=== PATIENT | female | born 1970 | race Caucasian/White ===

== ENCOUNTER → 2020-05-26 07:06 | Outpatient (BNVA) | payer BC, SELFPAY | PROVIDERS: PCP Internal Medicine; Referring Provider Internal Medicine; Visit Provider Surgery | DX: Z76.89 Persons encountering health services in other specified circumstances (principal) ==

== ENCOUNTER → 2020-06-30 07:30 | Outpatient (BNVA) | payer BC, SELFPAY | PROVIDERS: PCP Internal Medicine; Visit Provider Surgery | DX: Z76.89 Persons encountering health services in other specified circumstances (principal) ==

== ENCOUNTER → 2020-07-23 07:43 | Outpatient (BNVA) | payer BC, SELFPAY | PROVIDERS: PCP Internal Medicine; Visit Provider Surgery | DX: Z76.89 Persons encountering health services in other specified circumstances (principal) ==

== ENCOUNTER → 2020-10-06 07:28 | Outpatient (BNVA) | payer BC, SELFPAY | PROVIDERS: PCP Internal Medicine; Visit Provider Surgery ==

== ENCOUNTER 2023-04-25 08:50 | Outpatient (AMB) | payer BC, SELFPAY ==
--- NOTE | 2023-04-25 08:52 | A.OFFVIS_ITS ---
Intake VS Expanded 04/25/23 08:58 Height 5 ft 2.5 in Weight 164 lb 3.2 oz BMI 29.6 BP 134/74 Blood Pressure Location Rt brachial Blood Pressure Position Sitting Pulse 80 Pulse Source Pulse Oximeter Temp 97.7 F Temperature Source Temporal Artery Scan Pulse Oximetry 97 Oxygen Delivery Method Room Air Body Fat 53.8 Body Fat Percentage 32.8 Free Fat Mass 110.2 Muscle Mass 104.8 Visceral Mass 6.0 Water Mass 78.2 BMR 1,483 Intake Visit Reasons: (OV) PO LSG 03/27/20 Reimbursement Liaison Required: No Allergies diphenhydramine [From BENADRYL] Allergy (Unknown, Verified 04/25/23 08:55) MAKES ME CRAZY Sulfa (Sulfonamide Antibiotics) [SULFA (SULFONAMIDE ANTIBIOTICS)] Allergy (Unknown, Verified 04/25/23 08:55) FEELS LIKE THROAT CLOSING Popie seeds Allergy (Unknown, Uncoded 03/21/20 00:00) rash POPPY SEEDS Allergy (Unknown, Uncoded 04/17/20 19:49) HIVES, SCRATCHY THROAT Sulfa Drugs Allergy (Unknown, Uncoded 03/21/20 00:00) redness Medication List - Last Reconciled 04/25/23 by MERRY Scott [mvi PO DAILY] [vit D 4,000 mcg PO DAILY] HPI HPI Comments History of Present Illness Details This?a?53?yo female who is s/p LSG without hiatal hernia repair on?03/27/20. Presents for 3 year post op visit. She was last seen in the office on 10/06/20 with a weight of 156.1 pounds and a BMI of 29. Weight today is 164.2 pounds, with a BMI of 329.6. No complaints of nausea, emesis, abdominal pain or reflux. Reports infrequent but normal bowel movements every 1-2 days and uses stool softeners regularly. She was lost to followup up due to having to care for her family and trying to do things independently. Present meal plan includes: Premier protein rtd Pure Protein bar w berries protein 4 oz, 4 oz veg 40 oz water, no soda or juice ? Exercise routine includes: walking3 miles daily, trampoline at night 12 minutes, 6 mile hike on weekends. Any post op complications: none BRAYDEN: never DM: never HTN: never Hyperlipidemia: never GERD:?0-5 scale ??0 = no symptoms ??1 = symptoms noticeable but not bothersome 2 =symptoms bothersome but not daily ? 3 = symptoms bothersome and daily 4 = symptoms affect daily activities 5 = symptoms are incapacitating, unable to do daily activities ? How bad is the heartburn: 0 ? Heartburn while lying down: 0 ? Heartburn when standing up: 0 ? Heartburn after meals: 0 ? Does heartburn change your diet: 0 ? Does heartburn wake you up from sleep: 0 ? Do you have difficulty swallowin ? Do you have pain with swallowin ? If you take medicine for your reflux, does this affect your daily life: 0 Satisfaction with present condition - satisfied or not satisfied: satisfied with health but would like to lose a little weight PFSH Medical History Intestinal malabsorption Surgical History Obesity Social History Alcohol intake: current Alcohol intake frequency: holidays/special occasions only Patient Tobacco Use Status: Never used Tobacco Review of Systems Const All systems reviewed & are unremarkable except as noted in HPI and below Physical Exam Vital Signs: Last Vital Signs Temp 97.7 F 04/25/23 08:58 Pulse 80 04/25/23 08:58 BP 134/74 04/25/23 08:58 Pulse Ox 97 04/25/23 08:58 Oxygen Delivery Method Room Air 04/25/23 08:58 BMI result Body Mass Index 30.5 Const General: cooperative and no acute distress Orientation/consciousness: patient oriented x3 Resp Effort & Inspection: normal respiratory effort Auscultation: clear to auscultation bilaterally Cardio Rate: regular rate Rhythm: regular rhythm GI Inspection: Yes normal to inspection and Yes incision (well healed) Palpation (GI): Soft to palpation and no masses Neuro General: patient oriented x3 Assessment & Plan Assessment & Plan (1) Overweight: Code(s): E66.3 - Overweight Plan: change meal plan to premier protein shake 1 scoop in am pure protein bar at lunch 8 forks protein and 8 forks veg at dinner increase water to 64 oz daily Download Chlorine Genie to track calories burned while walking/hiking rtc 6 week check 3 year labs supplement as indicated Orders: Orders Insulin Today E66.3 - Overweight, K90.9 - Intestinal malabsorption, unspecified, Z98.84 - Bariatric surgery status IRON PROFILE Today E66.3 - Overweight, K90.9 - Intestinal malabsorption, unspeci fied, Z98.84 - Bariatric surgery status Zinc Today E66.3 - Overweight, K90.9 - Intestinal malabsorption, unspecified, Z98.84 - Bariatric surgery status Vitamin B1 Today E66.3 - Overweight, K90.9 - Intestinal malabsorption, unspecified, Z98.84 - Bariatric surgery status C Reactive Protein Today E66.3 - Overweight, K90.9 - Intestinal malabsorption, unspecified, Z98.84 - Bariatric surgery status PTHI Today E66.3 - Overweight, K90.9 - Intestinal malabsorption, unspecified, Z98.84 - Bariatric surgery status Basic Metabolic Panel Today E66.3 - Overweight, K90.9 - Intestinal malabsorption, unspecified, Z98.84 - Bariatric surgery status Lipid Panel Today E66.3 - Overweight, K90.9 - Intestinal malabsorption, unspecified, Z98.84 - Bariatric surgery status Complete Blood Count Auto Diff Today E66.3 - Overweight, K90.9 - Intestinal malabsorption, unspecified, Z98.84 - Bariatric surgery status Vitamin B12 and Folate Today E66.3 - Overweight, K90.9 - Intestinal malabsorption, unspecified, Z98.84 - Bariatric surgery status Vitamin A Today E66.3 - Overweight, K90.9 - Intestinal malabsorption, unspecified, Z98.84 - Bariatric surgery status Ferritin Today E66.3 - Overweight, K90.9 - Intestinal malabsorption, unspecified, Z98.84 - Bariatric surgery status TSH reflex Free T4 Today E66.3 - Overweight, K90.9 - Intestinal malabsorption, unspecified, Z98.84 - Bariatric surgery status Vitamin D 25-OH Total Today E66.3 - Overweight, K90.9 - Intestinal malabsorption, unspecified, Z98.84 - Bariatric surgery status Hemoglobin A1c Today E66.3 - Overweight, K90.9 - Intestinal malabsorption, unspecified, Z98.84 - Bariatric surgery status Coding Level of Care Code Est Pt Level 4 (55234) Diagnoses Overweight E66.3 Time Spent (min) 40
[2023-04-25 08:58] VITALS: BP 134/74; PULSE 80; TEMP 36.5; O2SAT 97; BMI 29.6
== END 2023-04-25 09:33 | disposition home or self-care (01) ==
PROVIDERS: PCP Internal Medicine; Visit Provider Physician Assistant Surgical
DX: E66.3 Overweight (principal); Z68.29 Body mass index [BMI] 29.0-29.9, adult; Z90.3 Acquired absence of stomach [part of]; Z98.84 Bariatric surgery status
CPT/HCPCS: 99214

== ENCOUNTER 2023-04-25 08:50 | Outpatient (REF) | payer BC, SELFPAY ==
[2023-04-25 09:52] LABS: MANUAL DIFF FLAG NO
[2023-04-25 10:24] LABS: Basophils Percent Auto 0.6 % (0-2); Eosinophils Absolute Auto 0.2 X10*3/uL (0.0-0.4); Eosinophils Percent Auto 2.6 % (0-4); Hematocrit 41.9 % (37.0-47.0); Hemoglobin 14.5 g/dl (12.0-16.0); Imm Gran Abs Auto 0.03 X10*3/uL (0.00-0.03); Imm Gran Pct Auto 0.5 % (0.0-0.4); Lymphocytes Absolute Auto 2.4 X10*3/uL (1.2-4.9); Lymphocytes Percent Auto 36.7 % (20-40); Mean Corpuscular HGB Conc 34.6 g/dl (31.0-35.0); Mean Corpuscular Hemoglobin 32.3 pg (27.0-33.0); Mean Corpuscular Volume 93.3 fL (80.0-98.0); Mean Platelet Volume 9.5 fL (9.4-12.3); Monocytes Absolute Auto 0.6 X10*3/uL (0.1-1.2); Monocytes Percent Auto 8.9 % (2-11); Neutrophils Absolute Auto 3.3 x10*3/uL (2.0-8.3); Neutrophils Percent Auto 50.7 % (45-73); Platelet Count 239 X10*3/uL (160-400); Red Blood Count 4.49 X10*6/uL (4.20-5.50); Red Cell Distribution Width 13.1 % (11.0-16.0); White Blood Count 6.5 X10*3/uL (4.8-10.8)
[2023-04-25 10:31] LABS: Estimated Average Glucose 82 mg/dL; Hemoglobin A1c % 4.5 % (<6.0)
[2023-04-25 11:09] LABS: Anion Gap 12 (12-20); Blood Urea Nitrogen 10 mg/dL (9-16); Calcium 9.1 mg/dL (8.4-10.2); Carbon Dioxide 24 mmol/L (22-29); Chloride 104 mmol/L (96-108); Cholesterol 250 mg/dL (<200); Estimated Glomerular Filt Rate > 60; Glucose Random 87 mg/dL (60-115); HDL Cholesterol 72 mg/dL (>40); Iron 135 mcg/dL (30-160); LDL Cholesterol Calculated 143 mg/dL (<100); Percent Iron Saturation 42 % (15-50); Potassium 4.3 mmol/L (3.3-5.1); Sodium 136 mmol/L (135-145); Total Iron Binding Capacity 324 mcg/dL (228-428); Triglycerides 179 mg/dL (<150); Unsaturated Iron Binding 189 ug/dL
[2023-04-25 11:26] LABS: Ferritin 146 ng/mL (10-250); Insulin 6 uU/mL (2-29); TSH reflex Free T4 1.24 uIU/mL (0.32-4.0); Vitamin D 25-OH Total 23.2 ng/mL (>30)
[2023-04-25 11:34] LABS: Folate 9.1 ng/mL (> or = 4.0); Vitamin B12 283 pg/mL (200-900)
[2023-04-26 15:18] LABS: Calcium (PTHI) 9.1 mg/dL (8.6-10.4); PTHI 44 pg/mL (16-77)
[2023-04-28 22:22] LABS: Zinc 68 mcg/dL (60-130)
[2023-04-29 17:23] LABS: Vitamin B1 6 nmol/L (8-30)
[2023-04-29 22:04] LABS: Vitamin A 82 mcg/dL (38-98)
== END 2023-04-25 08:51 | disposition home or self-care (01) ==
LOC: HO.LAB 08:50
PROVIDERS: PCP Nurse Practitioner Adult Health; Visit Provider Physician Assistant Surgical
DX: E66.3 Overweight (principal); K90.9 Intestinal malabsorption, unspecified; Z98.84 Bariatric surgery status; Z68.30 Body mass index [BMI] 30.0-30.9, adult; Z79.899 Other long term (current) drug therapy
CPT/HCPCS: 36415; 80048; 80061; 82306; 82607; 82728; 82746; 83036; 83525; 83540; 83970; 84425; 84443; 84590; 84630; 85025; 86140